=== PATIENT | male | born 1995 | race Caucasian/White ===

== ENCOUNTER 2017-07-07 09:55 | Emergency (ER) | payer SELFPAY ==
[2017-07-07 10:06] VITALS: BP 124/68
--- NOTE | 2017-07-07 10:08 | UC ---
Ear Complaint HPI - HPI Summary HPI Summary: 21 y/o male presents to the urgent care c/o LF ear pain since 07/04/2017. Pt states he went to a Water park and he thinks he has a swimmer's ear infection. Some drainage is coming out and a feeling his ear is popping every time he coughs and sneezes. Pain is 9/10 when he coughs or sneezes and 5/10 at rest. Pt denies fever, dizziness,hearing loss, DIMAS, SOB, N/V/D. Pt doesn't have any other complains. - History of Current Complaint Chief Complaint: UCEar Stated Complaint: EAR PAIN Time Seen by Provider: 07/07/17 10:07 Hx Obtained From: Patient Onset/Duration: Gradual Onset, Lasting Days, Still Present Severity Initially: Mild Severity Currently: Moderate Pain Intensity: 9 - when he coughs Pain Scale Used: 0-10 Numeric Associated Signs/Symptoms: Positive: Discharge. Negative: Hearing Loss Related History: Seasonal Allergies - Allergies/Home Medications Allergies/Adverse Reactions: Allergies Allergy/AdvReac Type Severity Reaction Status Date / Time Cefaclor [From Ceclor] Allergy Severe Hives Verified 07/07/17 10:01 bee stings Allergy Severe throat Uncoded 07/07/17 10:01 swelling/respiratory PMH/Surg Hx/FS Hx/Imm Hx Previously Healthy: Yes Other Respiratory History: seasonal allergies Neurological History: Migraine - Surgical History Surgical History: None - Family History Known Family History: Positive: Hypertension, Diabetes - Social History Occupation: Employed Full-time Lives: With Family Alcohol Use: Occasionally Substance Use Type: None Smoking Status (MU): Former Smoker - Immunization History Vaccination Up to Date: Yes Review of Systems Constitutional: Negative Skin: Negative Eyes: Negative ENT: Ear Ache - LF ear pain after swimming Respiratory: Negative Cardiovascular: Negative Gastrointestinal: Negative Genitourinary: Negative Motor: Negative Neurovascular: Negative Musculoskeletal: Negative Neurological: Negative Psychological: Negative All Other Systems Reviewed And Are Negative: Yes Physical Exam Triage Information Reviewed: Yes Appearance: Well-Appearing, No Pain Distress, Well-Nourished, Thin Vital Signs: Initial Vital Signs Temp 98.7 F 07/07/17 10:02 Pulse 66 07/07/17 10:02 Resp 16 07/07/17 10:02 BP 124/68 07/07/17 10:02 Pulse Ox 100 07/07/17 10:02 Vital Signs Reviewed: Yes Eye Exam: Normal Eyes: Positive: Conjunctiva Clear - PERRLA, EOMI,fundi grossly normal ENT: Positive: Normal ENT inspection, Hearing grossly normal, Pharynx normal, TMs normal - RT ear canla and TM WNL, LF ear canal w/ erythema and yellowish ear drainage. LF TM w/ positive light reflex. Dental Exam: Normal Neck exam: Normal Neck: Positive: Supple, Nontender, Enlarged Nodes @ - LF mild enalarge anterior cervical lymph node tender to palpation Respiratory Exam: Normal Respiratory: Positive: Chest non-tender, Lungs clear, Normal breath sounds Cardiovascular Exam: Normal Cardiovascular: Positive: RRR, No Murmur, Pulses Normal, Brisk Capillary Refill Abdominal Exam: Normal Abdomen Description: Positive: Nontender, No Organomegaly, Soft. Negative: CVA Tenderness (R), CVA Tenderness (L) Bowel Sounds: Positive: Present Musculoskeletal Exam: Normal Neurological Exam: Normal Psychological Exam: Normal Skin Exam: Normal Ear Complaint Course/Dx - Course Course Of Treatment: 21 y/o male presents to the urgent care c/o LF ear pain since 07/04/2017. Pt states he went to a Water park and he thinks he has a swimmer 's ear infection. Some drainage is coming out and a feeling his ear is popping every time he coughs and sneezes. Pain is 9/10 when he coughs or sneezes and 5/ 10 at rest. Pt denies fever, dizziness,hearing loss, DIMAS, SOB, N/V/D.HX obtained. Acute Otitis externa. Pt Rx ofloxacin Otic drops and Ibuporfen PO to alleviate pain. Pt advised if symptoms do not improve to f/u with PCP or return to the urgent care for further evaluation and treatment. Pt understood and agreed. - Differential Dx/Diagnosis Differential Diagnosis/HQI/PQRI: Barotrauma, Otitis Externa, Otitis Media, Perforated TM, Pharyngitis Provider Diagnoses: 1-Acute Otitis Externa Discharge - Discharge Plan Condition: Stable Disposition: HOME Prescriptions: Ibuprofen TAB* [Motrin TAB* 800 MG] 800 mg PO Q6H #20 tab Ofloxacin 0.3% OTIC.CORIE* [Floxin 0.3% OTIC.CORIE*] 5 drop .SEE ORDER BID #1 [id number] Patient Education Materials: Otitis Externa (ED) Forms: *Work Release Referrals: Isidro Escoto MD [Primary Care Provider] - If Needed Additional Instructions: Please apply medication as directed. Take ibuprofen PO after meals for pain. If symptoms do not improve or worsen please f/u with your PCP or return to the urgent care for further evaluation and treatment.
== END 2017-07-07 10:33 | disposition home or self-care (01) ==
LOC: UCCORT 09:55
DX: H60.502 Unspecified acute noninfective otitis externa, left ear (principal); G43.909 Migraine, unspecified, not intractable, without status migrainosus; Z88.1 Allergy status to other antibiotic agents; Z91.030 Bee allergy status; Z87.891 Personal history of nicotine dependence
CPT/HCPCS: 99212; G0463

== ENCOUNTER 2017-11-12 15:49 | Emergency (ER) | payer MEDICAID, OTHER ==
[2017-11-12 16:06] VITALS: BP 140/68
[2017-11-12] MEDS ORDERED: Ondansetron ODT TAB* 4 MG PO ONE (16:50)
--- NOTE | 2017-11-12 16:53 | UC ---
Abdominal Pain Male HPI - HPI Summary HPI Summary: had sub earlier and vomited 6 times since then with some abdominal discomfort. moving bowels ok no other c/o at this time. - History of Current Complaint Chief Complaint: UCGI Stated Complaint: VOMITTING Time Seen by Provider: 11/12/17 16:46 Hx Obtained From: Patient Onset/Duration: Sudden Onset Timing: Constant Severity Initially: Moderate Severity Currently: Moderate Location: Diffuse Radiates: No Character: Cramping Aggravating Factor(s): Food Alleviating Factor(s): Rest Associated Signs And Symptoms: Positive: Negative - Allergies/Home Medications Allergies/Adverse Reactions: Allergies Allergy/AdvReac Type Severity Reaction Status Date / Time [facility] Allergy Severe Hives Verified 11/12/17 15:54 bee stings Allergy Severe throat Uncoded 11/12/17 15:54 swelling/respiratory Home Medications: Home Medications Loratadine 1 tab DAILY 11/12/17 [History Confirmed 11/12/17] PMH/Surg Hx/FS Hx/Imm Hx Previously Healthy: Yes - Surgical History Surgical History: None - Family History Known Family History: Positive: Hypertension, Diabetes - Social History Alcohol Use: Occasionally Substance Use Type: None Smoking Status (MU): Former Smoker - Immunization History Most Recent Influenza Vaccination: no Vaccination Up to Date: Yes Review of Systems Constitutional: Negative Skin: Negative Eyes: Negative ENT: Negative Respiratory: Negative Cardiovascular: Negative Gastrointestinal: Abdominal Pain, Vomiting Genitourinary: Negative Motor: Negative Neurovascular: Negative Musculoskeletal: Negative Neurological: Negative Psychological: Negative Is Patient Immunocompromised?: No All Other Systems Reviewed And Are Negative: Yes Physical Exam Triage Information Reviewed: Yes Appearance: Ill-Appearing Vital Signs: Initial Vital Signs Temp 98.3 F 11/12/17 15:54 Pulse 74 11/12/17 15:54 Resp 16 11/12/17 15:54 BP 140/68 11/12/17 15:54 Pulse Ox 98 11/12/17 15:54 Abd Pain Male Course/Dx - Course Course Of Treatment: no work tonight - note given for 1 night 11/12/17. liquids tonight - gatorade or water. resume food in am. take zofran as directed - discussed use - gave one dose here prior to discharge with some relief of nausea. f/u pcp 3 days if symtoms not resolving - Differential Dx/Clinical Impression Provider Diagnoses: food poisoning Discharge - Discharge Plan Condition: Good Disposition: HOME Prescriptions: Ondansetron ODT TAB* [Zofran 4 MG Odt TAB*] 4 mg PO Q8H PRN 3 Days #10 tab.odt PRN Reason: Vomiting Patient Education Materials: Food Poisoning (ED) Forms: *Work Release Referrals: Isidro Escoto MD [Primary Care Provider] - 1 Week
== END 2017-11-12 17:03 | disposition home or self-care (01) ==
LOC: UCCORT 15:49
DX: T62.91XA Toxic effect of unspecified noxious substance eaten as food, accidental (unintentional), initial encounter (principal); R11.10 Vomiting, unspecified; Y92.9 Unspecified place or not applicable; Z88.1 Allergy status to other antibiotic agents; Z87.891 Personal history of nicotine dependence
CPT/HCPCS: 99212; A9270-GY; G0463

== ENCOUNTER 2018-09-17 09:12 | Emergency (ER) | payer OTHER ==
[2018-09-17 09:45] VITALS: BP 123/71
--- NOTE | 2018-09-17 10:27 | UC ---
FLU HPI - HPI Summary HPI Summary: 22-year-old male presents with sudden onset of fever of 103.3 F this morning at 3 AM. Associated with fatigue, body aches, headache, left ear pain, nasal congestion, sore throat, a nonproductive cough, and nausea. Denies rash, chest pain, shortness of breath, abdominal pain, vomiting, diarrhea, dysuria, frequency, urgency, or hematuria. - History of Current Complaint Chief Complaint: UCGeneralIllness Stated Complaint: FEVER Time Seen by Provider: 09/17/18 09:54 Hx Obtained From: Patient Onset/Duration: Sudden Onset, Lasting Hours Severity Initially: Moderate Pain Intensity: 7 Associated Signs & Symptoms: Positive: Fever, Myalgia, Cough, Sore Throat, Nasal Congestion, Headache. Negative: Vomiting, Diarrhea - Allergy/Home Medications Allergies/Adverse Reactions: Allergies Allergy/AdvReac Type Severity Reaction Status Date / Time bee venom protein (honey bee) Allergy Difficulty Verified 09/17/18 09:46 Breathing/Wheezing cefaclor [From [facility]] Allergy Hives Verified 09/17/18 09:46 Home Medications: Home Medications Fluticasone NASAL SPRAY 50MCG* [Flonase NASAL SPRAY 50MCG*] 2 spray BOTH NARES DAILY 09/17/18 [History Confirmed 09/17/18] LoraTADine TAB(NF) [Claritin 10 MG TAB(NF)] 10 mg PO DAILY 09/17/18 [History Confirmed 09/17/18] PMH/Surg Hx/FS Hx/Imm Hx Previously Healthy: Yes - Denies significant PMH - Surgical History Surgical History: Yes Surgery Procedure, Year, and Place: Ear Piercings Closed - Family History Known Family History: Positive: Hypertension, Diabetes - Social History Occupation: Student Lives: With Family Alcohol Use: Occasionally Substance Use Type: None Smoking Status (MU): Former Smoker Length of Time of Smoking/Using Tobacco: ~1/2 PPD x 3 Years When Did the Patient Quit Smoking/Using Tobacco: 2012 - Immunization History Most Recent Influenza Vaccination: no Vaccination Up to Date: Yes Review of Systems Constitutional: Fever, Chills, Fatigue, Other - body aches Skin: Negative Eyes: Negative ENT: Sore Throat, Ear Ache - left, Nasal Discharge Respiratory: Cough Cardiovascular: Negative Gastrointestinal: Nausea Genitourinary: Negative Neurological: Headache Is Patient Immunocompromised?: No All Other Systems Reviewed And Are Negative: Yes Physical Exam Triage Information Reviewed: Yes Appearance: Well-Appearing, No Pain Distress, Well-Nourished Vital Signs: Initial Vital Signs Temp 99 F 09/17/18 09:40 Pulse 92 09/17/18 09:40 Resp 16 09/17/18 09:40 BP 123/71 09/17/18 09:40 Pulse Ox 99 09/17/18 09:40 Eyes: Positive: Conjunctiva Clear. Negative: Discharge ENT: Positive: Pharyngeal erythema - Mild, Nasal congestion, Uvula midline, Other - Right TM intact, opaque, with good cone of light. Cerumen impaction of the left external auditory canal. Unable to visualize TM.. Negative: Nasal drainage, Tonsillar swelling, Tonsillar exudate, Sinus tenderness Neck: Positive: Supple, Nontender, No Lymphadenopathy Respiratory: Positive: Chest non-tender, Lungs clear, Normal breath sounds, No respiratory distress Cardiovascular: Positive: RRR, No Murmur Abdomen Description: Positive: Nontender, No Organomegaly, Soft. Negative: Distended, Guarding Bowel Sounds: Positive: Present Neurological: Positive: Alert Skin Exam: Normal Re-Evaluation - Re-Evaluation First Eval Re-Evaluation Time: 10:45 Comment: Post-irrigation of left external auditory canal. Canal clear, TM intact , opaque, with good cone of light. Flu Course/Dx - Course Course Of Treatment: 22 year old male with sudden onset of fever and flu-like illness this morning at 3 am. History and exam consistent with a viral URI. Rapid flu negative. Recommend symptomatic treatment. He is to follow up with PCP if symptoms persist. Warning symptoms reviewed. Verbalizes understanding and agrees with POC. - Differential Dx/Diagnosis Differential Diagnosis/HQI/PQRI: Bronchitis, Influenza, Upper Respiratory Infection Provider Diagnoses: Viral URI Discharge - Sign-Out/Discharge Documenting (check all that apply): Patient Departure All imaging exams completed and their final reports reviewed: No Studies - Discharge Plan Condition: Stable Disposition: HOME Prescriptions: Benzonatate CAP* [Tessalon 100 MG CAP*] 100 mg PO TID PRN #30 cap PRN Reason: Cough Patient Education Materials: Upper Respiratory Infection (ED) Forms: *Work Release Referrals: No Primary Care Phys,NOPCP [Primary Care Provider] - Additional Instructions: Rapid flu test performed in the clinic today was negative. I suspect that your symptoms are from another viral infection. Viral infections do not respond antibiotics and typically run their course over 7-10 days. Be sure to drink plenty of fluids and stay well-hydrated especially reporting any fever. Take haqv-yie-tadrbth acetaminophen (Tylenol) or ibuprofen (Advil, Motrin) according to directions as needed for aches, pains, or fever. Use an sdjd-iff-xlszsma decongestant such as Sudafed according to directions as needed for congestion. Use salt water gargles several times a day for the sore throat. You may use Chloraseptic spray or Cepacol lozenges as needed for temporary relief of the sore throat. I given you a prescription for Tessalon Perles one capsule every 8 hours as needed for your cough. Follow-up with your primary care provider in 7-10 days if symptoms persist. Seek immediate medical attention if you have a persistent fever greater than 100.5 F despite using acetaminophen or ibuprofen, he developed chest pain, have difficulty breathing, persistent vomiting, or any worsening of symptoms. - Billing Disposition and Condition Condition: STABLE Disposition: Home
== END 2018-09-17 10:57 | disposition home or self-care (01) ==
LOC: UCCORT 09:12
DX: J06.9 Acute upper respiratory infection, unspecified (principal); Z87.891 Personal history of nicotine dependence; Z91.030 Bee allergy status; Z88.1 Allergy status to other antibiotic agents
CPT/HCPCS: 99213; G0463

== ENCOUNTER 2018-11-18 10:20 | Emergency (ER) | payer OTHER ==
[2018-11-18] MEDS ORDERED: Ondansetron TAB* 4 MG PO ONE (10:32)
[2018-11-18] MEDS ORDERED: Ondansetron ODT TAB* 4 MG ONE (10:34)
[2018-11-18] MEDS ORDERED: Ondansetron ODT TAB* 4 MG PO ONE (10:35)
--- NOTE | 2018-11-18 10:36 | UC ---
General HPI - HPI Summary HPI Summary: Pt c/o nausea and vomitting since 0900 this morning. States he had breakfast at 0700 and had emesis x7 since 0900. Stomache. No diarrhea. Has not eaten/drank since 929 d/t nausea. Pleasant 23 yo gentleman c/o sudden onset n/v approx 09-09:30 this am. Several episodes, vomited entire breakfast stomach contents, then bilious. Hope ok upon awakening this morning. Cooked and ate recently defrosted venison sausage approx 07:30. No diarrhea. Last bm approx 09:30, normal, no blood / melena. No urinary sx, did not urinate prior to arrival, was able to urinate here. + pain in abdomen from vomiting. No cp / sob. No rash. No fever / recent illness. - History of Current Complaint Chief Complaint: UCGI Stated Complaint: VOMITTING Time Seen by Provider: 11/18/18 10:34 Hx Obtained From: Patient Pain Intensity: 0 - Allergy/Home Medications Allergies/Adverse Reactions: Allergies Allergy/AdvReac Type Severity Reaction Status Date / Time bee venom protein (honey bee) Allergy Difficulty Verified 11/18/18 10:26 Breathing/Wheezing cefaclor [From [facility]] Allergy Hives Verified 11/18/18 10:26 Home Medications: Home Medications EPINEPHrine [Epipen 2-Mike] 1 syr ONCE 11/18/18 [History Confirmed 11/18/18] Fluticasone NASAL SPRAY 50MCG* [Flonase NASAL SPRAY 50MCG*] 1 spray DAILY [History Confirmed 11/18/18] PMH/Surg Hx/FS Hx/Imm Hx Previously Healthy: Yes - Surgical History Surgical History: Yes Surgery Procedure, Year, and Place: Ear Piercings Closed - Family History Known Family History: Positive: Hypertension, Diabetes - Social History Occupation: Employed Full-time Alcohol Use: Occasionally Substance Use Type: None Smoking Status (MU): Former Smoker Length of Time of Smoking/Using Tobacco: ~1/2 PPD x 3 Years When Did the Patient Quit Smoking/Using Tobacco: 2012 - Immunization History Most Recent Influenza Vaccination: no Most Recent Tetanus Shot: UTD Vaccination Up to Date: Yes Review of Systems All Other Systems Reviewed And Are Negative: Yes Constitutional: Positive: Other - see hpi Skin: Positive: Other - see hpi Eyes: Positive: Other - see hpi ENT: Positive: Other - see hpi Respiratory: Positive: Other - see hpi Cardiovascular: Positive: Other - see hpi Gastrointestinal: Positive: Abdominal Pain, Vomiting, Nausea, Other - see hpi Genitourinary: Positive: Other - see hpi Motor: Positive: Other - see hpi Neurovascular: Positive: Other - see hpi Musculoskeletal: Positive: Other: - see hpi Neurological: Positive: Negative Psychological: Positive: Negative Is Patient Immunocompromised?: No Physical Exam Triage Information Reviewed: Yes Appearance: Well-Nourished - sitting up for exam, able to lie down, but painful process of sitting up and lying back. Nontoxic general appearance. Vital Signs: Initial Vital Signs Temp 97.3 F 11/18/18 10:27 Pulse 74 11/18/18 10:27 Resp 16 11/18/18 10:27 BP 141/71 11/18/18 10:27 Pulse Ox 100 11/18/18 10:27 Vital Signs Reviewed: Yes Eye Exam: Normal ENT: Positive: Pharyngeal erythema - mild post redness, c/w vomiting, TM dull - TM dull henry, intact Neck exam: Normal Neck: Positive: Supple, Nontender Respiratory Exam: Normal Respiratory: Positive: Chest non-tender, Lungs clear, Normal breath sounds, No respiratory distress, No accessory muscle use Cardiovascular Exam: Normal Cardiovascular: Positive: RRR, No Murmur, Pulses Normal, Brisk Capillary Refill Abdominal Exam: Other - + bowel sounds, normal to hyperactive. Nondistended. Tender mid-epig, LUQ, L lat mid -low abd. No rebound or guarding. No appreciable hsm. No cvat. No skin discoloration. Musculoskeletal Exam: Normal - moves x 4 ext's well Neurological Exam: Normal - grossly nonfocal Psychological Exam: Normal - conversing easily and appropriately. Skin Exam: Normal - nondiaphoretic. No visible or reported rash. Course/Dx - Course Course Of Treatment: /. Zofran 4mg po x 1. IV ns 1liter bolus. Pepcid push x 1 20mg. blood work: cbc, cmp, lipase, magnesium. 12:10 - feels better. Abd discomfort still present but decreased. I suspect this discomfort in large part is related to muscl strain s/p n/v. Advised to seek medical attention immediately if discomfort worsens. Will drink gingerale and crackers. If ok, will d/c IV. 12:32 tolerated crackers, gingerale. Feels ready to go home. Will not go to work today. Requests refill antihistamine while he is here. Questions as posed answered to the best of my ability. - Diagnoses Provider Diagnosis: Nausea & vomiting, Volume depletion, Abdominal pain Discharge - Sign-Out/Discharge Documenting (check all that apply): Patient Departure All imaging exams completed and their final reports reviewed: No Studies - Discharge Plan Condition: Stable Disposition: HOME Prescriptions: Ondansetron ODT TAB* [Zofran 4 MG Odt TAB*] 4 mg PO Q6H PRN #12 tab.odt PRN Reason: Nausea Patient Education Materials: Dehydration (ED), Acute Nausea and Vomiting (ED), Abdominal Pain (ED) Forms: *Work Release Referrals: No Primary Care Phys,NOPCP [Primary Care Provider] - [facility] [place] [facility]FERR[facility] [Outside] Additional Instructions: Follow up with a primary care physician, as soon as you are able. Please go to the Emergency Department for worse or new or unresolved problems. Blood work drawn today: Cbc, cmp, magnesium, lipase. - Billing Disposition and Condition Condition: STABLE Disposition: Home
[2018-11-18] MEDS ORDERED: Famotidine IV * 20 MG in NS 0.9% 100 ML* 100 ML IV ONE (10:49)
[2018-11-18] MEDS ORDERED: Famotidine IV* 10 MG/ML 2 ML (20 mg) IV SLOW PU ONE (10:49)
[2018-11-18] MEDS ORDERED: NS 0.9% 1000 ML* 1,000 ML IV ONE (10:50)
[2018-11-18 12:50] VITALS: BP 116/69
[2018-11-18 13:47] LABS: Calcium 9.9 mg/dL (8.6-10.3); Magnesium 1.8 mg/dL (1.9-2.7); Total Bilirubin 0.8 mg/dL (0.2-1.0)
[2018-11-18 13:53] LABS: Albumin/Globulin Ratio 1.9 (1-3); BUN/Creatinine Ratio 12.7 (8-20); EGFR Non-African American 91.3 (>60); Globulin 2.6 g/dL (2-4); Total Protein 7.6 g/dL (6.4-8.9)
[2018-11-18 14:09] LABS: ABS Basophils 0 10^3/ul (0-0.2); ABS Eosinophils 0 10^3/ul (0-0.6); ABS Lymphocytes 1.8 10^3/ul (1.0-4.8); ABS Monocytes 0.5 10^3/ul (0-0.8); ABS Neutrophils 3.8 10^3/ul (1.5-7.7); ABS Nucleated RBC 0 10^3/ul; Eosinophil % 0.7 %; Hematocrit 49 % (42-52); Hemoglobin 16.5 g/dl (14.0-18.0); Lymphocyte % 29.6 %; Mean Corpuscular HGB Conc 34 g/dl (31-36); Mean Corpuscular Hemoglobin 30 pg (27-31); Mean Corpuscular Volume 88 fL (80-94); Mean Platelet Volume 11.1 fL (7.4-10.4); Nucleated Red Blood Cells % 0.1; Platelet Count 216 10^3/ul (150-450); Red Blood Count 5.59 10^6/ul (4.00-5.40); Red Cell Distribution Width 14 % (10.5-15); White Blood Count 6.2 10^3/ul (3.5-10.8)
--- NOTE | 2018-11-19 07:22 | UC ---
- Progress Note Progress Note: CBC, CMP reviewed non concerning no change curry 11/19/18 Course/Dx - Diagnoses Provider Diagnoses: Nausea & vomiting, Volume depletion, Abdominal pain Discharge - Sign-Out/Discharge Documenting (check all that apply): Post-Discharge Follow Up All imaging exams completed and their final reports reviewed: No Studies - Discharge Plan Condition: Stable Disposition: HOME Prescriptions: Loratadine [Allergy] 10 mg PO DAILY PRN #30 tablet PRN Reason: Allergy Symptoms Ondansetron ODT TAB* [Zofran 4 MG Odt TAB*] 4 mg PO Q6H PRN #12 tab.odt PRN Reason: Nausea Patient Education Materials: Dehydration (ED), Acute Nausea and Vomiting (ED), Abdominal Pain (ED) Forms: *Work Release Referrals: [facility] [place] [facility] REFERR[facility] [Outside] No Primary Care Phys,NOPCP [Primary Care Provider] - Additional Instructions: Follow up with a primary care physician, as soon as you are able. Please go to the Emergency Department for worse or new or unresolved problems. Blood work drawn today: Cbc, cmp, magnesium, lipase. - Billing Disposition and Condition Condition: STABLE Disposition: Home
== END 2018-11-18 12:57 | disposition home or self-care (01) ==
LOC: UCCORT 10:20
DX: Z88.1 Allergy status to other antibiotic agents (principal); Z87.891 Personal history of nicotine dependence; R11.2 Nausea with vomiting, unspecified; E86.9 Volume depletion, unspecified; R10.12 Left upper quadrant pain; R10.32 Left lower quadrant pain
CPT/HCPCS: 36415; 80053; 81003; 83690; 83735; 85025; 96361; 96374; 99212; A9270-GY; G0463

== ENCOUNTER 2019-03-29 10:02 | Emergency (ER) | payer OTHER ==
[2019-03-29 10:19] VITALS: BP 125/70
--- NOTE | 2019-03-29 10:42 | UC ---
UC General HPI - HPI Summary HPI Summary: SORE THROAT WITH HEADACHE AND SUBJECTIVE FEVER THIS AM. SOME NAUSEA BUT NON NOW. NO SELF TX. DAD HAS THE SAME. DIMAS IS NOT ABRUPT OR WORST. - History of Current Complaint Chief Complaint: UCHeadazafar Stated Complaint: ST,NAUSEA,DIMAS Time Seen by Provider: 03/29/19 10:15 Hx Obtained From: Patient Timing: Constant Pain Intensity: 6 Aggravating: HEAD FEELS WORSE WITH MOVEMENT OF NECK Associated Signs & Symptoms: Negative: Cough, Chest Pain, Diarrhea, Dysuria, SOB , Vomiting - Allergy/Home Medications Allergies/Adverse Reactions: Allergies Allergy/AdvReac Type Severity Reaction Status Date / Time bee venom protein (honey bee) Allergy Difficulty Verified 03/29/19 10:19 Breathing/Wheezing cefaclor [From [facility]] Allergy Hives Verified 03/29/19 10:19 PMH/Surg Hx/FS Hx/Imm Hx Previously Healthy: Yes - Surgical History Surgical History: Yes Surgery Procedure, Year, and Place: Ear Piercings Closed - Family History Known Family History: Positive: Hypertension, Diabetes - Social History Occupation: Employed Full-time Alcohol Use: Occasionally Substance Use Type: None Smoking Status (MU): Former Smoker Length of Time of Smoking/Using Tobacco: ~1/2 PPD x 3 Years When Did the Patient Quit Smoking/Using Tobacco: 2012 - Immunization History Most Recent Influenza Vaccination: no Most Recent Tetanus Shot: UTD Vaccination Up to Date: Yes Review of Systems All Other Systems Reviewed And Are Negative: Yes Constitutional: Positive: Fever - SUBJECTIVE Eyes: Negative: Photophobia ENT: Positive: Sore Throat Gastrointestinal: Positive: Nausea. Negative: Abdominal Pain, Vomiting, Diarrhea Musculoskeletal: Positive: Myalgia - NECK Neurological: Positive: Headache Physical Exam Triage Information Reviewed: Yes Appearance: Well-Appearing Vital Signs: Initial Vital Signs Temp 98.5 F 03/29/19 10:13 Pulse 73 03/29/19 10:13 Resp 18 03/29/19 10:13 BP 125/70 03/29/19 10:13 Pulse Ox 100 03/29/19 10:13 Vital Signs Reviewed: Yes Eyes: Positive: Conjunctiva Clear ENT: Positive: Pharyngeal erythema - SLIGHT, TMs normal, Uvula midline. Negative: Nasal congestion, Nasal drainage, Trismus, Muffled voice, Hoarse voice Neck: Positive: Supple, Nontender, No Lymphadenopathy, Other: - ROM IN ALL DIRECTIONS WITH NO LIMITATION OF GUARDING. Negative: Nuchal Rigidity Respiratory: Positive: Lungs clear, Normal breath sounds Cardiovascular: Positive: RRR, No Murmur Abdomen Description: Positive: Nontender, No Organomegaly, Soft. Negative: Distended, Guarding Bowel Sounds: Positive: Present Musculoskeletal: Positive: ROM Intact Neurological: Positive: Other: - A&OX3. CN GROSSLY INTACT. STAEDY GAIT Skin Exam: Normal Skin: Negative: Rashes Diagnostics - Laboratory Lab Results: RAPID STREP IS NEGATIVE Course/Dx - Differential Dx - Multi-Symptom Differential Diagnoses: Other - PT IS NON TOXIC. NO CONCERN FOR MENINGITIS OR ENCEPHALITIS. RAPID STREP IS NEGATIVE. NO INDICATION FOR ANTIBIOTICS. - Diagnoses Provider Diagnosis: Pharyngitis Discharge - Sign-Out/Discharge Documenting (check all that apply): Patient Departure All imaging exams completed and their final reports reviewed: No Studies - Discharge Plan Condition: Stable Disposition: HOME Patient Education Materials: Pharyngitis (ED) Referrals: ROXANNA Montes [Primary Care Provider] - Additional Instructions: FOLLOW UP PRIMARY CARE IF NOT BETTER IN 3-5 DAYS OR SOONER IF WORSE. - Billing Disposition and Condition Condition: STABLE Disposition: Home
[2019-03-29] MEDS ORDERED: Ibuprofen ADULT LIQ* 600 MG/30 ML UDC PO ONE (10:43)
== END 2019-03-29 10:50 | disposition home or self-care (01) ==
LOC: UCCORT 10:02
DX: J02.9 Acute pharyngitis, unspecified (principal); Z87.891 Personal history of nicotine dependence; Z88.8 Allergy status to other drugs, medicaments and biological substances
CPT/HCPCS: 87651; 99212; A9270-GY; G0463

== ENCOUNTER 2019-05-22 09:50 | Emergency (ER) | payer OTHER ==
[2019-05-22 10:07] VITALS: BP 134/81
--- NOTE | 2019-05-22 10:29 | UC ---
Throat Pain/Nasal Marcelo HPI - HPI Summary HPI Summary: 23-year-old male comes in with a chief complaint of headache runny nose sinus pressure environmental allergies symptoms diarrhea and bilateral hand tingling. Patient has a history of environmental allergies any normally takes loratadine 10 mg once a day and uses Flonase nasal spray. He ran out of his prescriptions recently and he started having a hard time with nasal congestion in his rhinorrhea has turned yellow. With this getting worse he is developed a headache it's frontal and also at the back of his neck which he relates to an erythematous environmental allergies or get worse area sinusitis he gets this kind of headache. No fevers. Last couple days been having loose diarrhea. No abdominal pain no blood in the stools. Also for the last couple of weeks is been waking up in the morning with some numbness and pain in his hands primarily his thumb through his fourth fingers. Patient at work does do a lot of heavy lifting. The numbness goes away once he wakes up and moves his hands around. - History of Current Complaint Chief Complaint: UCHeadache Stated Complaint: DIMAS Time Seen by Provider: 05/22/19 10:06 Pain Intensity: 6 - Allergies/Home Medications Allergies/Adverse Reactions: Allergies Allergy/AdvReac Type Severity Reaction Status Date / Time bee venom protein (honey bee) Allergy Difficulty Verified 05/22/19 10:04 Breathing/Wheezing cefaclor [From [facility]] Allergy Hives Verified 05/22/19 10:04 PMH/Surg Hx/FS Hx/Imm Hx Previously Healthy: Yes - ENVIRONMENTAL ALLERGIES - Surgical History Surgical History: Yes Surgery Procedure, Year, and Place: Ear Piercings Closed - Family History Known Family History: Positive: Hypertension, Diabetes - Social History Alcohol Use: None Substance Use Type: None Smoking Status (MU): Former Smoker Length of Time of Smoking/Using Tobacco: ~1/2 PPD x 3 Years When Did the Patient Quit Smoking/Using Tobacco: 2012 - Immunization History Most Recent Influenza Vaccination: no Most Recent Tetanus Shot: UTD Vaccination Up to Date: Yes Review of Systems All Other Systems Reviewed And Are Negative: Yes Constitutional: Positive: Negative Skin: Positive: Negative Eyes: Positive: Negative ENT: Positive: Sore Throat, Ear Ache, Nasal Discharge, Sinus Congestion Respiratory: Positive: Negative Cardiovascular: Positive: Negative Gastrointestinal: Positive: Diarrhea Motor: Positive: Negative Neurovascular: Positive: Other - SEE HPI Musculoskeletal: Positive: Other: - SEE HPI Neurological: Positive: Headache Psychological: Positive: Negative Is Patient Immunocompromised?: No Physical Exam Triage Information Reviewed: Yes Appearance: Well-Appearing, No Pain Distress, Well-Nourished Vital Signs: Initial Vital Signs Temp 98.0 F 05/22/19 09:59 Pulse 68 05/22/19 09:59 Resp 15 05/22/19 09:59 BP 134/81 05/22/19 09:59 Pulse Ox 100 05/22/19 09:59 Vital Signs Reviewed: Yes Eye Exam: Normal Eyes: Positive: Conjunctiva Clear ENT: Positive: Pharynx normal, Nasal congestion, TMs normal Neck: Positive: Supple Respiratory: Positive: Lungs clear, Normal breath sounds, No respiratory distress Cardiovascular: Positive: RRR Musculoskeletal: Positive: Other: - POSITIVE B/L PHALEN'S. NEGATIVE TINEL'S. WRIST/FINGERS FROM WITH FULL STRENGTH, NL CAP REFILL. NL RADIAL PULSES. Neurological: Positive: Alert, Muscle Tone Normal Psychological: Positive: Age Appropriate Behavior Skin Exam: Normal Throat Pain/Nasal Course/Dx - Course Course Of Treatment: We will treat with loratadine and Flonase and amoxicillin to help decrease the environmental allergies and treat the bacterial infection. Based on the patient 's story expect the headache to improve once we've treated the sinusitis and environmental allergies but if it does not he needs to get reevaluated. Symptoms have been longer than 10 days. The patient's cannot watch the diarrhea and at that gets worse or he gets any belly pain in his can get reevaluated. Patient has positive Phalen's bilaterally and his story is consistent with bilateral carpal tunnel. Cock-up splint's bilaterally placed by nursing patient neurovascular intact after placement of the splints. Patient will follow-up with sports medicine for the bilateral carpal tunnel. - Differential Dx/Diagnosis Provider Diagnosis: Sinusitis, Environmental allergies, Carpal tunnel syndrome, bilateral, Diarrhea Discharge - Sign-Out/Discharge Documenting (check all that apply): Patient Departure All imaging exams completed and their final reports reviewed: No Studies - Discharge Plan Condition: Stable Disposition: HOME Prescriptions: Amoxicillin PO (*) [Amoxicillin 875 MG (*)] 875 mg PO BID #20 tab Fluticasone NASAL SPRAY 50MCG* [Flonase NASAL SPRAY 50MCG*] 2 spray BOTH NARES DAILY #1 btl Loratadine 10 mg PO DAILY #30 tablet Patient Education Materials: Acute Diarrhea (ED) Forms: *Work Release Referrals: [facility] [Outside] [facility] [Provider Group] Additional Instructions: FOLLOW UP WITH YOUR PRIMARY CARE DOCTOR FOR YOUR SINUSITIS AND ENVIRONMENTAL ALLERGIES AND SPORTS MEDICINE FOR YOUR CARPAL TUNNEL. GET RECHECKED SOONER IF YOUR CONDITION WORSENS OR ANY QUESTIONS OR CONCERNS. - Billing Disposition and Condition Condition: STABLE Disposition: Home
== END 2019-05-22 10:35 | disposition home or self-care (01) ==
LOC: UCCORT 09:50
DX: J32.9 Chronic sinusitis, unspecified (principal); T78.40XA Allergy, unspecified, initial encounter; G56.03 Carpal tunnel syndrome, bilateral upper limbs; R19.7 Diarrhea, unspecified; Z87.891 Personal history of nicotine dependence
CPT/HCPCS: 99213; G0463

== ENCOUNTER 2019-09-16 17:22 | Emergency (ER) | payer OTHER ==
--- NOTE | 2019-09-16 19:55 | UC ---
Hand/Wrist HPI - HPI Summary HPI Summary: 23-year-old male comes in with chief complaint of right fourth and fifth finger pain. Patient reports that at work he's injured his fingers. He has pain in the PIP of the right fourth and fifth fingers. Significant it's bothering him most this evening his the fifth finger PIP. Patient does have a healing laceration over the right fifth PIP that occurred about a week ago. No drainage. - History Of Current Complaint Chief Complaint: UCUpperExtremity Stated Complaint: RT RING AND PINKY FINGER INJURY Time Seen by Provider: 09/16/19 19:43 Pain Intensity: 6 - Allergies/Home Medications Allergies/Adverse Reactions: Allergies Allergy/AdvReac Type Severity Reaction Status Date / Time bee venom protein (honey bee) Allergy Difficulty Verified 09/16/19 17:52 Breathing/Wheezing cefaclor [From [facility]] Allergy Hives Verified 09/16/19 17:52 PMH/Surg Hx/FS Hx/Imm Hx Previously Healthy: Yes - Surgical History Surgical History: Yes Surgery Procedure, Year, and Place: Ear Piercings Closed - Family History Known Family History: Positive: Hypertension, Diabetes - Social History Alcohol Use: Occasionally Substance Use Type: None Smoking Status (MU): Former Smoker Length of Time of Smoking/Using Tobacco: ~1/2 PPD x 3 Years When Did the Patient Quit Smoking/Using Tobacco: 2012 Household Exposure Type: Cigarettes - Immunization History Most Recent Influenza Vaccination: no Most Recent Tetanus Shot: UTD Vaccination Up to Date: Yes Review of Systems All Other Systems Reviewed And Are Negative: Yes Constitutional: Positive: Negative Skin: Positive: Other - SEE HPI Eyes: Positive: Negative ENT: Positive: Negative Respiratory: Positive: Negative Cardiovascular: Positive: Negative Gastrointestinal: Positive: Negative Motor: Positive: Negative Neurovascular: Positive: Negative Musculoskeletal: Positive: Other: - SEE HPI Neurological: Positive: Negative Psychological: Positive: Negative Is Patient Immunocompromised?: No Physical Exam Triage Information Reviewed: Yes Appearance: Well-Appearing, No Pain Distress, Well-Nourished Vital Signs: Initial Vital Signs Temp 98.7 F 09/16/19 17:45 Pulse 65 09/16/19 17:45 Resp 18 09/16/19 17:45 BP 143/70 09/16/19 17:45 Pulse Ox 100 09/16/19 17:45 Vital Signs Reviewed: Yes Eye Exam: Normal Eyes: Positive: Conjunctiva Clear Neck: Positive: Supple Respiratory: Positive: No respiratory distress Musculoskeletal: Positive: Strength Intact, ROM Intact, Other: - Right fourth and fifth fingers have full range of motion. Tenderness is the worst at the PIP of the fifth finger.. Normal capillary refill normal sensation. Neurological: Positive: Alert Psychological: Positive: Age Appropriate Behavior Skin: Positive: Other - Right fifth PIP has a curved 1 cm healing laceration without any drainage swelling or tenderness or streaking. Hand/Wrist Course/Dx - Course Course Of Treatment: I discussed the x-rays with the patient I do not see any fractures radiologist reading is pending. Patient got a splint as he said it would get in the way of when he works. Plan is to follow-up with the orthopedic hand specialist. - Differential Dx/Diagnosis Provider Diagnosis: Pain in right finger(s) Discharge ED - Sign-Out/Discharge Documenting (check all that apply): Patient Departure All imaging exams completed and their final reports reviewed: No - Discharge Plan Condition: Stable Disposition: HOME Patient Education Materials: Finger Sprain (ED) Referrals: Hui Hurtado MD [Medical Doctor] - Additional Instructions: FOLLOW UP WITH THE ORTHOPEDICS HAND SPECIALIST. GET REEVALUATED SOONER IF NOT IMPROVING OR YOUR CONDITION WORSENS OR ANY QUESTIONS OR CONCERNS. - Billing Disposition and Condition Condition: STABLE Disposition: Home
[2019-09-16 19:56] VITALS: BP 132/70
--- NOTE | 2019-09-17 07:38 | UC ---
- Progress Note Progress Note: xray report right hand : IMPRESSION: NO EVIDENCE FOR FRACTURE. Course/Dx - Diagnoses Provider Diagnoses: Pain in right finger(s) Discharge ED - Sign-Out/Discharge Documenting (check all that apply): Patient Departure All imaging exams completed and their final reports reviewed: Yes - Discharge Plan Condition: Stable Disposition: HOME Patient Education Materials: Finger Sprain (ED) Referrals: Hui Hurtado MD [Medical Doctor] - Additional Instructions: FOLLOW UP WITH THE ORTHOPEDICS HAND SPECIALIST. GET REEVALUATED SOONER IF NOT IMPROVING OR YOUR CONDITION WORSENS OR ANY QUESTIONS OR CONCERNS. - Billing Disposition and Condition Condition: STABLE Disposition: Home
== END 2019-09-16 20:01 | disposition home or self-care (01) ==
LOC: UCCORT 17:22
DX: M79.644 Pain in right finger(s) (principal); Z87.891 Personal history of nicotine dependence
CPT/HCPCS: 99212; G0463

== ENCOUNTER 2019-11-12 11:06 | Emergency (ER) | payer OTHER ==
--- OUTSIDE RECORDS SUMMARY | 2019-11-12 11:31 | XMS REPORT | Continuity of Care Document ---
:1995 External Reference #:[id number] Author Name Hui Hurtado M.D. (transmitted by agent of provider Radha Ford) Address [address] [place] [address] Care Team Providers Name Role Phone Patient's Choice Care Team Information Seasonal Tax Preparer Unavailable Problems Description No Information Available Social History Type Date Description Comments Sex Unknown ETOH Use Denies alcohol use Tobacco Use Start: Unknown Patient has never smoked Exercise Type/Frequency Exercises regularly Allergies, Adverse Reactions, Alerts Active Allergies Reaction Severity Comments Date Vinh alfaro 03/12/2013 Medications Active Medications SIG Qnty Indications Ordering Provider Date Claritin 1 tablet daily 30caps Unknown 10mg Capsules prn Immunizations Description No Information Available Vital Signs Date Vital Result Comment 09/25/2019 1:18pm Height 66 inches 5'6" Weight 143.00 lb Heart Rate 79 /min BP Systolic 126 mmHg BP Diastolic 86 mmHg Respiratory Rate 16 /min Body Temperature 96.8 F Pain Level 7 O2 % BldC Oximetry 98 % BMI (Body Mass Index) 23.1 kg/m2 03/12/2013 2:39pm Weight 130.00 lb Weight Percentile 36th Results Description No Information Available Procedures Description No Information Available Medical Devices Description No Information Available Encounters Description No Information Available Assessments Description No Information Available Plan of Treatment No Information Available Functional Status Description No Information Available Mental Status Description No Information Available Referrals Description No Information Available
[2019-11-12 11:36] VITALS: BP 133/70
--- NOTE | 2019-11-12 12:45 | UC ---
Abdominal Pain Male HPI - HPI Summary HPI Summary: nausea / vomiting / diarrhea x 1 day abdominal cramps , + fever, chills, body aches, + cold symptoms with cough , runny nose, sore throat - History of Current Complaint Chief Complaint: UCGI Stated Complaint: FEVER NAUSEA STOMACH CHILLS/SWEATS DIARRHEA VOMITI Time Seen by Provider: 11/12/19 11:47 Hx Obtained From: Patient Onset/Duration: Gradual Onset, Lasting Days - 1, Still Present Timing: Constant Severity Initially: Moderate Severity Currently: Moderate Pain Intensity: 0 Pain Scale Used: 0-10 Numeric Location: Diffuse Radiates: No Character: Cramping Aggravating Factor(s): Nothing Alleviating Factor(s): Nothing Associated Signs And Symptoms: Positive: Fever, Nausea, Vomiting, Diarrhea. Negative: Cough, Chest Pain, Dizzy - Allergies/Home Medications Allergies/Adverse Reactions: Allergies Allergy/AdvReac Type Severity Reaction Status Date / Time bee venom protein (honey bee) Allergy Difficulty Verified 11/12/19 11:32 Breathing/Wheezing cefaclor [From [facility] [place] Allergy Hives Verified 11/12/19 11:32 Home Medications: Home Medications Ibuprofen TAB* [Motrin TAB* 400 MG] 400 mg PO Q6H PRN 11/12/19 [History Confirmed 11/12/19] PMH/Surg Hx/FS Hx/Imm Hx Previously Healthy: Yes - Surgical History Surgical History: Yes Surgery Procedure, Year, and Place: Ear Piercings Closed - Family History Known Family History: Positive: Hypertension, Diabetes - Social History Alcohol Use: Occasionally Substance Use Type: None Smoking Status (MU): Former Smoker Length of Time of Smoking/Using Tobacco: ~1/2 PPD x 3 Years When Did the Patient Quit Smoking/Using Tobacco: 2013 Household Exposure Type: Cigarettes - Immunization History Most Recent Influenza Vaccination: no Most Recent Tetanus Shot: UTD Vaccination Up to Date: Yes Review of Systems All Other Systems Reviewed And Are Negative: Yes Constitutional: Positive: Fever, Chills, Fatigue Skin: Positive: Negative Eyes: Positive: Negative ENT: Positive: Sore Throat, Nasal Discharge Respiratory: Positive: Cough Cardiovascular: Positive: Negative Gastrointestinal: Positive: Abdominal Pain, Vomiting, Diarrhea, Nausea Genitourinary: Negative: Dysuria Is Patient Immunocompromised?: No Physical Exam Triage Information Reviewed: Yes Appearance: Well-Appearing, No Pain Distress, Well-Nourished Vital Signs: Initial Vital Signs Temp 99.5 F 11/12/19 11:32 Pulse 65 11/12/19 11:32 Resp 15 11/12/19 11:32 BP 133/70 11/12/19 11:32 Pulse Ox 97 11/12/19 11:32 Vital Signs Reviewed: Yes Eye Exam: Normal Eyes: Positive: Conjunctiva Clear ENT: Positive: Normal ENT inspection, Hearing grossly normal, Pharynx normal Neck exam: Normal Neck: Positive: Supple, Nontender, No Lymphadenopathy Respiratory: Positive: Chest non-tender, Lungs clear, Normal breath sounds Cardiovascular: Positive: RRR, No Murmur, Pulses Normal Abdomen Description: Positive: Nontender, Soft. Negative: CVA Tenderness (R), CVA Tenderness (L), Distended, Guarding Bowel Sounds: Positive: Present Skin Exam: Normal Abd Pain Male Course/Dx - Differential Dx/Clinical Impression Provider Diagnosis: Gastroenteritis Discharge ED - Sign-Out/Discharge Documenting (check all that apply): Patient Departure All imaging exams completed and their final reports reviewed: No Studies - Discharge Plan Condition: Stable Disposition: HOME Prescriptions: Ondansetron ODT TAB* [Zofran 4 MG Odt TAB*] 8 mg PO Q8H PRN #9 tab.odt PRN Reason: Nausea/Vomiting Patient Education Materials: Gastroenteritis (ED) Referrals: No Primary Care Phys,NOPCP [Primary Care Provider] - - Billing Disposition and Condition Condition: STABLE Disposition: Home
== END 2019-11-12 12:00 | disposition home or self-care (01) ==
LOC: UCCORT 11:06
DX: K52.9 Noninfective gastroenteritis and colitis, unspecified (principal); J02.9 Acute pharyngitis, unspecified; Z91.030 Bee allergy status; Z88.1 Allergy status to other antibiotic agents; Z87.891 Personal history of nicotine dependence
CPT/HCPCS: 99212; G0463

== ENCOUNTER 2019-11-17 11:15 | Emergency (ER) | payer OTHER ==
[2019-11-17 11:51] VITALS: BP 122/65
--- NOTE | 2019-11-17 12:22 | UC ---
Hand/Wrist HPI - HPI Summary HPI Summary: Pt accidentally slammed his right ring finger in a car door last evening. He did not apply ice after injury. - History Of Current Complaint Chief Complaint: UCUpperExtremity Stated Complaint: RIGHT RING FINGER INJURY Time Seen by Provider: 11/17/19 12:13 Hx Obtained From: Patient ?: No Onset/Duration: Sudden Onset Severity Initially: Moderate Severity Currently: Mild Pain Intensity: 8 Character Of Pain: Dull, Aching Aggravating Factor(s): Flexion, Extension Alleviating Factor(s): Nothing Associated Signs And Symptoms: Positive: Swelling - Allergies/Home Medications Allergies/Adverse Reactions: Allergies Allergy/AdvReac Type Severity Reaction Status Date / Time bee venom protein (honey bee) Allergy Difficulty Verified 11/17/19 11:47 Breathing[facility]ezing [facility] Allergy Hives Verified 11/17/19 11:47 PMH/Surg Hx/FS Hx/Imm Hx Previously Healthy: Yes - Surgical History Surgical History: Yes Surgery Procedure, Year, and Place: Ear Piercings Closed - Family History Known Family History: Positive: Hypertension, Diabetes - Social History Occupation: Employed Full-time Alcohol Use: Occasionally Substance Use Type: None Smoking Status (MU): Former Smoker Length of Time of Smoking/Using Tobacco: ~1/2 PPD x 3 Years When Did the Patient Quit Smoking/Using Tobacco: 2012 Household Exposure Type: Cigarettes - Immunization History Most Recent Influenza Vaccination: no Most Recent Tetanus Shot: UTD Vaccination Up to Date: Yes Review of Systems All Other Systems Reviewed And Are Negative: Yes Skin: Positive: Bruising - Very minimal bruising to right ring finger, mid- portion Motor: Positive: Decreased ROM - Unble to flex finger well due to swelling Is Patient Immunocompromised?: No Physical Exam Triage Information Reviewed: Yes Appearance: Well-Appearing, No Pain Distress, Well-Nourished Vital Signs: Initial Vital Signs Temp 98.2 F 11/17/19 11:47 Pulse 75 11/17/19 11:47 Resp 16 11/17/19 11:47 BP 122/65 11/17/19 11:47 Pulse Ox 99 11/17/19 11:47 Vital Signs Reviewed: Yes Musculoskeletal: Positive: Strength Intact, ROM Limited @, Other: - Good finger strength with flexion and extension against resistance, but flexion limited due to swelling. Neurological Exam: Normal Psychological Exam: Normal Skin: Positive: Other - Minimal bruising over PIP joint. No deformity, erythema. Skin warm to touch per normal compared to other fingers. Hand/Wrist Course/Dx - Course Course Of Treatment: Right ring finger x-ray: FINDINGS: BONE DENSITY: Normal. BONES: There is chronic posttraumatic deformity of the base of the middle phalanx of the fourth digit at the PIP joint. There is no acute displaced fracture. JOINTS: There is no arthropathy. ALIGNMENT: There is no dislocation. SOFT TISSUES: Unremarkable. OTHER FINDINGS: None. IMPRESSION: CHRONIC POST RHEUMATIC DEFORMITY OF THE FOURTH PIP JOINT SIMILAR TO SEPTEMBER 16, 2019. NO ACUTE OSSEOUS INJURY. IF SYMPTOMS PERSIST, RECOMMEND REPEAT IMAGING Nikolas tape applied for comfort. - Differential Dx/Diagnosis Provider Diagnosis: Sprain of right ring finger Discharge ED - Sign-Out/Discharge Documenting (check all that apply): Patient Departure All imaging exams completed and their final reports reviewed: Yes - Discharge Plan Condition: Good Disposition: HOME Patient Education Materials: Finger Sprain (ED) Referrals: Anthony Claros MD [Medical Doctor] - No Primary Care Phys,NOPCP [Primary Care Provider] - Additional Instructions: Nikolas tape and may remove as pain and comfort permits. Ice intermittently over the next few days. Tylenol/Motrin as directed for pain as needed. Follow up with the Orthopedist in 4-5 days if no improvement. - Billing Disposition and Condition Condition: GOOD Disposition: Home - Attestation Statements Provider Attestation: I was available for consult. This patient was seen by the [facility]. The patient was not presented to , seen by or examined by tn -Madiha Snow MD
== END 2019-11-17 12:32 | disposition home or self-care (01) ==
LOC: UCCORT 11:15
DX: S63.614A Unspecified sprain of right ring finger, initial encounter (principal); M20.091 Other deformity of right finger(s); Z91.030 Bee allergy status; Z88.1 Allergy status to other antibiotic agents; Z87.891 Personal history of nicotine dependence; W23.0XXA Caught, crushed, jammed, or pinched between moving objects, initial encounter; Y92.9 Unspecified place or not applicable
CPT/HCPCS: 73140; 99211; G0463

== ENCOUNTER 2019-12-11 09:50 | Emergency (ER) | payer OTHER ==
[2019-12-11 10:42] VITALS: BP 135/75
--- NOTE | 2019-12-11 11:02 | UC ---
FLU HPI - HPI Summary HPI Summary: Patient presents to urgent care today with 6 days of progressive high congestion ear pain level for some right sore throat and cough. Patient states he feels a little in his chest has been taking some NyQuil and getting up some yellow secretions. Patient denies short of breath although he does feel wheezing at times. Patient states his father sick with the same thing. Patient did not have a documented fever. No nausea, vomiting, diarrhea. No rash. Patient denied the flu shot. Patient medications as noted in the EMR reviewed this visit. - History of Current Complaint Chief Complaint: UCGeneralIllness Stated Complaint: COUGH,CONGESTION Time Seen by Provider: 12/11/19 10:46 Hx Obtained From: Patient Severity Currently: None Pain Intensity: 0 - Allergy/Home Medications Allergies/Adverse Reactions: Allergies Allergy/AdvReac Type Severity Reaction Status Date / Time bee venom protein (honey bee) Allergy Difficulty Verified 12/11/19 10:37 Breathing/Wheezing cefaclor [From [facility]] Allergy Hives Verified 12/11/19 10:37 Home Medications: Home Medications D-Methorphan/PE/Acetaminophen [Day Time Cold-Flu Liquid] 1 dose PO Q8H 12/11/19 [History Confirmed 12/11/19] Ibuprofen/Pseudoephedrine HCl [Advil Cold-Sinus Liqui-Gels] 1 dose PO ONCE 12/11 [History Confirmed 12/11/19] PMH/Surg Hx/FS Hx/Imm Hx Previously Healthy: Yes - Surgical History Surgical History: Yes Surgery Procedure, Year, and Place: Ear Piercings Closed - Family History Known Family History: Positive: Hypertension, Diabetes - Social History Occupation: Employed Full-time Lives: With Family Alcohol Use: Occasionally Substance Use Type: None Smoking Status (MU): Former Smoker Length of Time of Smoking/Using Tobacco: ~1/2 PPD x 3 Years When Did the Patient Quit Smoking/Using Tobacco: 2012 Household Exposure Type: Cigarettes - Immunization History Most Recent Influenza Vaccination: no Most Recent Tetanus Shot: UTD Vaccination Up to Date: Yes Review of Systems All Other Systems Reviewed And Are Negative: Yes Constitutional: Positive: Negative Skin: Positive: Negative Eyes: Positive: Negative ENT: Positive: Sore Throat, Sinus Congestion, Sinus Pain/Tenderness Respiratory: Positive: Cough Cardiovascular: Positive: Negative Physical Exam - Summary Physical Exam Summary: Vital Signs Reviewed: Yes A+Ox3, no distress Eyes: Conjunctiva Clear, ALANNA. EOM intact and full ENT: Hearing grossly normal TM x 2 visualized left ear + fluid, mild erythema turbinates inflammed and boggy, + PND, mmoist, uvula midline, no exudate, no erythema Neck: Positive: Supple Respiratory: Positive: No respiratory distress, No accessory muscle use + CTA throughout no w/r Cardiovascular: RRR nl s1, s2 no m/r CBT <2 sec abd soft + BS nt/nd no guarding, no distension Musculoskeletal Exam: YUNG x 4 without difficulty Strength Intact, ROM Intact Neurological: Positive: Alert, + sensation throughout Psychological: Positive: Normal Response To examiner Skin: Positive: no rash, no ecchymosis Triage Information Reviewed: Yes Vital Signs: Initial Vital Signs Temp 98.7 F 12/11/19 10:38 Pulse 91 12/11/19 10:38 Resp 15 12/11/19 10:38 BP 135/75 12/11/19 10:38 Pulse Ox 99 12/11/19 10:38 Flu Course/Dx - Course Course Of Treatment: Patient presents to urgent care reporting 6-7 days of progressive head congestion and ear pain sore throat cough. Patient denies fevers but states he does have fatigue. Patient do not get the flu vaccine. On exam vital signs are stable. Patient does have thick signing this congestion postnasal drip and otitis media forming in the left ear. Patient's informed was negative. Discussed the patient's patient precaution. Motor and Tylenol. We'll prescribe Flonase as well as antibiotic. Patient was given a work note. Patient comfortable in agreement with plan. Return precautions discussed. - Differential Dx/Diagnosis Provider Diagnosis: Otitis media, Upper respiratory infection Discharge ED - Sign-Out/Discharge Documenting (check all that apply): Patient Departure All imaging exams completed and their final reports reviewed: No Studies - Discharge Plan Condition: Stable Disposition: HOME Prescriptions: DOXYcycline CAP(*) [DOXYcycline 100MG CAP(*)] 100 mg PO BID #20 cap Fluticasone NASAL SPRAY 50MCG* [Flonase NASAL SPRAY 50MCG*] 2 spray BOTH NARES DAILY #1 btl Patient Education Materials: Ear Infection (ED), Upper Respiratory Infection ( ED) Forms: *Gen. Provider Communication, *Work Release Referrals: [facility] [Outside] No Primary Care Phys,NOPCP [Primary Care Provider] - Additional Instructions: - Take antibiotics exactly as prescribed until gone - Use nasal spray as prescribed - Stay well hydrated - avoid excess caffeine and all alcohol - Eat regular, healthy meals - humidify the air in the room where you sleep - boil water, run a hot steam shower, vaporizer, cups of water by heat register - okay to take over the counter decongestant and cough medication -- These infections are spread by secretions - do NOT share eating or drinking utensils - clean items you share with other people such as cell phones, computer mouse, TV remote, computer tablets,etc.. Once you have been antibiotics for 2 days, change your toothbrush and your pillowcase. -Contact your doctor to arrange a follow-up appointment this week. Call your doctor, return here or go to the emergency department with any questions or concerns - Billing Disposition and Condition Condition: STABLE Disposition: Home
[2019-12-11 11:09] LABS: Influenza A Molecular NEGATIVE (Negative); Influenza B Molecular NEGATIVE (Negative)
== END 2019-12-11 11:19 | disposition home or self-care (01) ==
LOC: UCCORT 09:50
DX: H66.91 Otitis media, unspecified, right ear (principal); J06.9 Acute upper respiratory infection, unspecified; Z87.891 Personal history of nicotine dependence; Z91.030 Bee allergy status; Z88.1 Allergy status to other antibiotic agents
CPT/HCPCS: 99212; G0463

== ENCOUNTER 2020-01-18 09:54 | Emergency (ER) | payer OTHER ==
--- OUTSIDE RECORDS SUMMARY | 2020-01-18 10:11 | XMS REPORT | Continuity of Care Document ---
:1995 External Reference #:[id number] Author Name Renan Marsh M.D. (transmitted by agent of provider Nelsy Parra) Address [address] [place] [id number] Care Team Providers Name Role Phone Juliana Andrade PA - Physician Care Team Information Physical Security Manager [phone] Channel Marketing Specialist Problems Active Problems Provider Date Noninfective disorders of pinna, Renan Marsh M.D. Onset: 07/05 unspecified ear Social History Type Date Description Comments Sex Unknown ETOH Use Currently consumes alcohol socially Tobacco Use Start: Unknown Patient denies history of smoking Recreational Drug Use Never Used Drugs Allergies, Adverse Reactions, Alerts Active Allergies Reaction Severity Comments Date Cefaclor 06/15/2018 Medications Active Medications SIG Qnty Indications Ordering Provider Date Fluticasone Propionate 1 spray to each Unknown nare every day 50mcg/Act Suspension Loratadine 1 by mouth every Unknown 10mg Capsules day Immunizations Description No Information Available Vital Signs Date Vital Result Comment 07/12/2018 11:06am BP Systolic 132 mmHg BP Diastolic 84 mmHg Heart Rate 110 /min Respiratory Rate 16 /min Height 62 inches 5'2" Weight 157.00 lb BMI (Body Mass Index) 28.7 kg/m2 BSA (Body Surface Area) 1.72 m2 O2 % BldC Oximetry 97 % 07/05/2018 8:56am BP Systolic 136 mmHg BP Diastolic 83 mmHg Heart Rate 58 /min Respiratory Rate 17 /min Height 62 inches 5'2" Weight 158.00 lb BMI (Body Mass Index) 28.9 kg/m2 BSA (Body Surface Area) 1.73 m2 O2 % BldC Oximetry 100 % Results Description No Information Available Procedures Description No Information Available Medical Devices Description No Information Available Encounters Description No Information Available Assessments Description No Information Available Plan of Treatment 07/12/2018 - Renan Marsh M.D.[id number] Noninfective disorders of pinna, unspecified earComments:Healing well following gauge closure.Avoid trauma. Return as needed. Functional Status Description No Information Available Mental Status Description No Information Available Referrals Description No Information Available
--- OUTSIDE RECORDS SUMMARY | 2020-01-18 10:11 | XMS REPORT | Continuity of Care Document ---
:1995 External Reference #:[id number] Author Name Renan Marsh M.D. 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
--- OUTSIDE RECORDS SUMMARY | 2020-01-18 10:11 | XMS REPORT | Continuity of Care Document ---
:1995 External Reference #:[id number] Author Name Renan Marsh M.D. 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
--- NOTE | 2020-01-18 10:47 | UC ---
Neck Pain HPI - HPI Summary HPI Summary: Neck and back and L shoulder pain after sleeping wrong last night. Feels pain w / movement. denies tingling/numbness. has not had this happen before.d enies etoh use. - History of Current Complaint Chief Complaint: UCHeadazafar Stated Complaint: NECK/BACK PAIN Time Seen by Provider: 01/18/20 10:45 Hx Obtained From: Patient Aggravating Factors: Movement Alleviating Factors: Nothing - Allergies/Home Medications Allergies/Adverse Reactions: Allergies Allergy/AdvReac Type Severity Reaction Status Date / Time bee venom protein (honey bee) Allergy Difficulty Verified 01/18/20 10:55 Breathing/Wheezing cefaclor [From [facility]] Allergy Hives Verified 01/18/20 10:55 Home Medications: Home Medications Fluticasone NASAL SPRAY 50MCG* [Flonase NASAL SPRAY 50MCG*] 2 spray BOTH NARES DAILY #1 btl 12/11/19 [Rx Confirmed 01/18/20] Cyclobenzaprine (NF) [Cyclobenzaprine 5 MG (NF)] 5 mg PO TID PRN 5 Days #15 tab 01/18/20 [Rx] Loratadine [Claritin 10 MG CAP] 10 mg PO DAILY 01/18/20 [History Confirmed 01/18] Naproxen Sodium [Aleve] 600 mg PO ONCE PRN 01/18/20 [History Confirmed 01/18/20] PMH/Surg Hx/FS Hx/Imm Hx - Additional Past Medical History Additional PMH: no chronic illness Previously Healthy: Yes - Surgical History Surgical History: Yes Surgery Procedure, Year, and Place: Ear Piercings Closed - Family History Known Family History: Positive: Hypertension, Diabetes - Social History Alcohol Use: Occasionally Substance Use Type: None Smoking Status (MU): Former Smoker Length of Time of Smoking/Using Tobacco: ~1/2 PPD x 3 Years When Did the Patient Quit Smoking/Using Tobacco: 2012 Household Exposure Type: Cigarettes - Immunization History Most Recent Influenza Vaccination: no Most Recent Tetanus Shot: UTD Vaccination Up to Date: Yes Review of Systems All Other Systems Reviewed And Are Negative: Yes Constitutional: Negative: Fever Skin: Negative: Bruising Motor: Positive: Decreased ROM - neck and L shoulder. Negative: Weakness Musculoskeletal: Positive: Myalgia - L side of nec k. Negative: Edema Physical Exam Triage Information Reviewed: Yes Appearance: Well-Appearing Vital Signs Reviewed: Yes Musculoskeletal: Positive: Strength Intact - L UE/neck, ROM Limited @ - at neck due to spasm. Neurological: Positive: Alert, Muscle Tone Normal Neck Pain Course/Dx - Course Course Of Treatment: Neck/back spasms after sleeping wrong this AM w/ no neuro deficits. denies etoh involvement. exam significant for armando/spasming w/ good strength. vitals good. plan is to give short term muscle relaxers while he is able to massage and he wanted to see chiropractor. - Differential Dx/Diagnosis Differential Dx/HQI/PQRI: Sprain, Strain, Torticollis, Other Provider Diagnosis: Neck muscle spasm Discharge ED - Sign-Out/Discharge Documenting (check all that apply): Patient Departure All imaging exams completed and their final reports reviewed: No Studies - Discharge Plan Condition: Good Disposition: HOME Prescriptions: Cyclobenzaprine (NF) [Cyclobenzaprine 5 MG (NF)] 5 mg PO TID PRN 5 Days #15 tab PRN Reason: Spasms Patient Education Materials: Muscle Spasm (ED) Referrals: Gabriela Crisostomo DC [Doctor of Chiropractic] - Alex BARRERA,Tasha [Doctor of Chiropractic] - Addison BARRERA,Wolfgang Washburn [Doctor of Chiropractic] - Additional Instructions: Please follow up if worsening. - Billing Disposition and Condition Condition: GOOD Disposition: Home - Attestation Statements Provider Attestation: Per institutional requirements, I have reviewed the chart, however, I was not consulted specifically or made aware of this patient by the midlevel provider. I did not personally evaluate, interact with, or disposition this patient. EK
[2020-01-18 10:55] VITALS: BP 128/73
== END 2020-01-18 11:41 | disposition home or self-care (01) ==
LOC: UCCORT 09:54
DX: M62.838 Other muscle spasm (principal); Z91.030 Bee allergy status; Z88.1 Allergy status to other antibiotic agents; Z87.891 Personal history of nicotine dependence
CPT/HCPCS: 99211; G0463

== ENCOUNTER 2020-03-09 09:40 | Emergency (ER) | payer OTHER ==
[2020-03-09 10:31] VITALS: BP 144/76
--- NOTE | 2020-03-09 10:41 | UC ---
FLU HPI - HPI Summary HPI Summary: Patient presents to urgent care stating yesterday he developed a frontal headache and some nausea after dinner. Patient vomited once in the night. This morning patient continued to have a headache and some nausea. Patient drink orange juice. Patient was driving to work when he started vomiting 2 more times. Patient states he feels still feels nauseous at this time. Had one episode of diarrhea. Patient states persistent headache. No ear pain no sinus congestion or sore throat. No shortness of breath, no cough, no chest pain. Patient states yesterday his body felt "this is resolved today. Patient has not had any known exposure to COVID. 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 One co-working was negative for testing. Patient lives with his mother and father. Patient occasionally smokes cigars. Patient does not date. Patient does have a history of migraines but states this headache feels different and is more frontal. No vision changes. Patient does not currently have a PCP - History of Current Complaint Chief Complaint: UCGeneralIllness Stated Complaint: VOMITING,NAUSEA,DIMAS Time Seen by Provider: 03/09/20 09:42 Hx Obtained From: Patient Onset/Duration: Gradual Onset Severity Currently: Moderate Severity Initially: Moderate Pain Intensity: 6 - frontal DIMAS - Allergy/Home Medications Allergies/Adverse Reactions: Allergies Allergy/AdvReac Type Severity Reaction Status Date / Time bee venom protein (honey bee) Allergy Difficulty Verified 03/09/20 09:54 Breathing/Wheezing cefaclor [From [facility]] Allergy Hives Verified 03/09/20 09:54 Home Medications: Home Medications Fluticasone NASAL SPRAY 50MCG* [Flonase NASAL SPRAY 50MCG*] 2 spray BOTH NARES DAILY #1 btl 12/11/19 [Rx Confirmed 03/09/20] Loratadine [Claritin 10 MG CAP] 10 mg PO DAILY 01/18/20 [History Confirmed 03/09] Ondansetron ODT TAB* [Zofran 4 MG Odt TAB*] 4 mg PO Q6HR #10 tab.odt 03/09/20 [ Rx] PMH/Surg Hx/FS Hx/Imm Hx Previously Healthy: Yes Neurological History: Migraine - Surgical History Surgical History: Yes Surgery Procedure, Year, and Place: Ear Piercings Closed - Family History Known Family History: Positive: Hypertension, Diabetes - Social History Occupation: Employed Full-time Lives: With Family Alcohol Use: Occasionally Substance Use Type: None Smoking Status (MU): Former Smoker Length of Time of Smoking/Using Tobacco: ~1/2 PPD x 3 Years When Did the Patient Quit Smoking/Using Tobacco: 2012 Household Exposure Type: Cigarettes - Immunization History Most Recent Influenza Vaccination: no Most Recent Tetanus Shot: UTD Vaccination Up to Date: Yes Review of Systems All Other Systems Reviewed And Are Negative: Yes Constitutional: Positive: Negative, Fatigue, Other - Mild myalgia yesterday resolved Skin: Positive: Negative Eyes: Positive: Negative ENT: Positive: Negative - Mom is likely is no alcoholic and I asked that Respiratory: Positive: Negative Cardiovascular: Positive: Negative Gastrointestinal: Positive: Vomiting, Nausea Genitourinary: Positive: Negative Motor: Positive: Negative Neurovascular: Positive: Negative Musculoskeletal: Positive: Negative, Myalgia - yesterday Neurological/Mental Status: Positive: Headache Psychological: Positive: Negative Is Patient Immunocompromised?: No Physical Exam - Summary Physical Exam Summary: Pt examined with full Provider PPE - pt with mask Vital Signs Reviewed: Yes A+Ox3, no distress, tired appearing Eyes: Conjunctiva Clear, ALANNA. EOM intact and full, no photophobia ENT: Hearing grossly normal TM x 2 clear, mmoist, uvula midline, no exudate, no erythema Neck: Positive: Supple Respiratory: Positive: No respiratory distress, No accessory muscle use + CTA throughout no w/r Cardiovascular: RRR nl s1, s2 no m/r CBT <2 sec abd soft + BS nt/nd no guarding, no distension, no CVA Musculoskeletal Exam: YUNG x 4 without difficulty Strength Intact, ROM Intact Neurological: Positive: Alert, + sensation throughout Psychological: Positive: Normal Response To examiner Skin: Positive: no rash, no ecchymosis Triage Information Reviewed: Yes Vital Signs: Initial Vital Signs Temp 98.2 F 03/09/20 10:29 Pulse 75 03/09/20 10:29 Resp 18 03/09/20 10:29 BP 144/76 03/09/20 10:29 Pulse Ox 100 03/09/20 10:29 Flu Course/Dx - Course Course Of Treatment: Patient presents to urgent care with nausea and vomiting that started last evening after dinner. Patient states he's had total of 4 episodes of nausea. Patient states he is making urine. Had myalgias yesterday. No documented fevers or chills. No sinus congestion, sore throat or ear pain. No cough or shortness of breath. 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 No analgesic taken. On exam vital signs are stable. Patient is not toxic appearing. Patient's abdomen soft and non-concerning. Given patient's symptoms effectively worked with 40 people most of this. We'll check for colon. I did discuss with patient the implications of this he states understanding. Swab was collected by me using full P PE. Patient given a work note. Patient was resulted very strict return precautions were discussed. Patient states understanding of plan. Patient awaiting his bed isolation until he receives a follow-up phone call from the hospital the health department. - Differential Dx/Diagnosis Provider Diagnosis: Nausea & vomiting, COVID-19 Discharge ED - Sign-Out/Discharge Documenting (check all that apply): Patient Departure All imaging exams completed and their final reports reviewed: No Studies - Discharge Plan Condition: Critical Disposition: HOME Prescriptions: Ondansetron ODT TAB* [Zofran 4 MG Odt TAB*] 4 mg PO Q6HR #10 tab.odt Patient Education Materials: Acute Nausea and Vomiting (ED) Forms: COVID-19 Tested & Isolation Referrals: [facility] [Outside] No Primary Care Phys,NOPCP [Primary Care Provider] - Additional Instructions: As discussed, you have been tested for COVID-19. Please follow the strict isolation guidelines as included in your paperwork. You should remain on isolation until you received a phone call with your test results from the [facility]. This may take 2-3 days. If you have any questions, please contact the Health Department. You have been given a medication, zofran, you can use as prescribed for nausea For the first 6 hours, eat and drink clears (water, kranthi len, soup broth, jello, popsicles, Gatorade). If you tolerate this okay, add bland foods such as dry toast, scrambled eggs, crackers. Wait until you are feeling better for 24 hours before eating spicy food, acidic food, tomato based food, fried food. It is recommended you follow-up with your primary care provider. You have been given the contact information for the physician referral center - this office can assist with finding a primary care provider. If there is uncontrolled fevers, uncontrolled vomiting, or you have any other concerns, return to emergency for further evaluation. - Billing Disposition and Condition Condition: CRITICAL Disposition: Home
== END 2020-03-09 10:48 | disposition home or self-care (01) ==
LOC: UCCORT 09:40
DX: R11.2 Nausea with vomiting, unspecified (principal); R51 Headache; Z20.828 Contact with and (suspected) exposure to other viral communicable diseases; Z88.1 Allergy status to other antibiotic agents; Z91.030 Bee allergy status; Z87.891 Personal history of nicotine dependence
CPT/HCPCS: 87635; 99212; G0463; G2023